=== PATIENT | female | born 1980 | race Caucasian/White ===

== ENCOUNTER 2018-05-16 01:48 | Emergency (ER) | payer MEDICAID ==
[~2018-05-16] VITALS: Ht 170.2 cm; Wt 76.2 kg
[2018-05-16 01:56] VITALS: Ht 170.2 cm; Wt 76.2 kg
[2018-05-16 02:48] LABS: CALCIUM 8.7 mg/dL (8.5-10.1); CARBON DIOXIDE 24.5 mmol/L (21-32); CHLORIDE SERUM 103 mmol/L (98-107); CREATININE SERUM 0.9 mg/dL (0.6-1.0); GFR1 > 60 mL/min; GLUCOSE SERUM 123 mg/dL (74-106); SODIUM SERUM 138 mmol/L (136-145)
[2018-05-16 02:53] LABS: ALBUMIN 3.5 g/dL (3.4-5.0); ALKALINE PHOSPHATASE 115 U/L (46-116); ALT/SGPT 61 U/L (14-59); AST/SGOT 82 U/L (15-37); LIPASE 709 IU/L (73-393); TOTAL PROTEIN, SERUM 7.5 g/dL (6.4-8.2)
[2018-05-16 03:31] VITALS: BP 118/73
== END 2018-05-16 03:31 | disposition home or self-care (01) ==
LOC: ED 01:48
PROVIDERS: Emergency Medicine
DX: R10.13 Epigastric pain (principal); R11.0 Nausea; Z90.49 Acquired absence of other specified parts of digestive tract
CPT/HCPCS: J0500

== ENCOUNTER 2018-06-09 01:06 | Inpatient (IN) | payer MEDICAID ==
[~2018-06-09] VITALS: Ht 170.2 cm; Wt 77.1 kg
[2018-06-09 01:26] VITALS: Ht 170.2 cm; Wt 77.1 kg
[2018-06-09 02:08] LABS: microscopic required? YES; urine erythrocyte TRACE (NEGATIVE)
[2018-06-09 02:10] LABS: BASOPHIL % 0.8 % (0-2); PLATELET COUNT 256 x10^3mcL (130-400); RED CELL DISTRIBUTION WIDTH 14.5 % (11.5-14.5)
[2018-06-09 02:18] LABS: CALCIUM 8.4 mg/dL (8.5-10.1); CARBON DIOXIDE 28.7 mmol/L (21-32); CHLORIDE SERUM 104 mmol/L (98-107); CREATININE SERUM 0.9 mg/dL (0.6-1.0); GFR1 > 60 mL/min; GLUCOSE SERUM 116 mg/dL (74-106); POTASSIUM SERUM 3.9 mmol/L (3.5-5.1); SODIUM SERUM 139 mmol/L (136-145)
[2018-06-09 02:22] LABS: ALBUMIN 3.6 g/dL (3.4-5.0); ALKALINE PHOSPHATASE 111 U/L (46-116); ALT/SGPT 34 U/L (14-59); AMYLASE 55 U/L (25-115); AST/SGOT 24 U/L (15-37); BILIRUBIN TOTAL 0.32 mg/dL (0.20-1.00); LIPASE 148 IU/L (73-393); TOTAL PROTEIN, SERUM 7.4 g/dL (6.4-8.2)
[2018-06-09] MEDS ORDERED: OXYCODONE HYDRO10 M1 PO (05:05)
[2018-06-09 06:09] LABS: CHOLESTEROL/HDL RATIO 3.6; PHOSPHOROUS 3.5 mg/dL (2.5-4.9)
[2018-06-09 06:16] LABS: FREE T4 1.11 ng/dL (0.76-1.46); T4(THYROXINE) 8.4 ug/dL (4.7-13.3)
[2018-06-09 06:17] LABS: T3 TOTAL 1.14 ng/mL
[2018-06-09 06:26] VITALS: BP 102/89
[2018-06-09 09:34] VITALS: BP 106/73
[2018-06-09 17:09] VITALS: BP 106/69
[2018-06-09 20:39] VITALS: BP 118/74
[2018-06-10 05:35] VITALS: BP 114/77
[2018-06-10 11:18] VITALS: BP 121/74
[2018-06-10 13:10] VITALS: BP 102/63
[2018-06-10] MEDS ORDERED: ELA25 PO (15:26)
[2018-06-10] MEDS ORDERED: AMITIZA24 MC1 PO (15:27)
[2018-06-10] MEDS ORDERED: METP PO (15:28)
[2018-06-10 15:44] VITALS: BP 102/63
== END 2018-06-10 16:25 | disposition home or self-care (01) | DRG 241 ==
LOC: ED 01:06 → DU 05:33 → IC 11:40 → DU 13:40 → IC 06-10 07:51 → DU 06-10 10:46
PROVIDERS: Emergency Medicine; Family Medicine; Internal Medicine Gastroenterology
PROC: 0DB68ZX Excision of Stomach, Via Natural or Artificial Opening Endoscopic, Diagnostic (ICD-10-PCS; principal; 2018-06-09 10:15)
PROC: 0DJD8ZZ Inspection of Lower Intestinal Tract, Via Natural or Artificial Opening Endoscopic (ICD-10-PCS; 2018-06-10)
DX: K29.70 Gastritis, unspecified, without bleeding (principal); K31.84 Gastroparesis; K27.9 Peptic ulcer, site unspecified, unspecified as acute or chronic, without hemorrhage or perforation; K58.8 Other irritable bowel syndrome; T40.2X5A Adverse effect of other opioids, initial encounter; Z68.26 Body mass index [BMI] 26.0-26.9, adult; Z79.891 Long term (current) use of opiate analgesic; Y92.009 Unspecified place in unspecified non-institutional (private) residence as the place of occurrence of the external cause
CPT/HCPCS: 43235; 45378; 83880; 84439; J1170; J1200; J1610; J2250; J2270; J2310; J2765; J3010; J3490; J7030; Q0092; Q0162

== ENCOUNTER 2018-11-08 21:05 | Emergency (ER) | payer MEDICAID ==
[~2018-11-08] VITALS: Ht 167.6 cm; Wt 77.6 kg
[~2018-11-08 21:05] MED LIST: AMITIZA24 MC1 PO; ELA25 PO; METP PO; OXYCODONE HYDRO10 M1 PO
[2018-11-08 21:20] VITALS: Ht 167.6 cm; Wt 77.6 kg
[2018-11-08 22:32] LABS: CALCIUM 8.9 mg/dL (8.5-10.1); CARBON DIOXIDE 29.1 mmol/L (21-32); CHLORIDE SERUM 105 mmol/L (98-107); CREATININE SERUM 0.9 mg/dL (0.6-1.0); GFR1 > 60 mL/min; GLUCOSE SERUM 93 mg/dL (74-106); POTASSIUM SERUM 3.3 mmol/L (3.5-5.1); SODIUM SERUM 140 mmol/L (136-145)
[2018-11-08 22:54] VITALS: BP 121/78
== END 2018-11-08 22:54 | disposition home or self-care (01) ==
LOC: ED 21:05
PROVIDERS: Emergency Medicine
DX: K52.9 Noninfective gastroenteritis and colitis, unspecified (principal); Z90.49 Acquired absence of other specified parts of digestive tract
CPT/HCPCS: J1885; J2405; J7030

== ENCOUNTER 2018-11-11 11:21 | Emergency (ER) | payer MEDICAID ==
[~2018-11-11] VITALS: Ht 170.2 cm; Wt 77.6 kg
[2018-11-11 11:42] VITALS: Ht 170.2 cm; Wt 77.6 kg
[2018-11-11 12:16] LABS: microscopic required? NO
[2018-11-11 12:24] LABS: UA SPECIFIC GRAVITY <=1.005 (1.005-1.035); urine erythrocyte NEGATIVE (NEGATIVE)
[2018-11-11 13:34] LABS: BASOPHIL % 0.7 % (0-2); PLATELET COUNT 276 x10^3mcL (130-400)
[2018-11-11 13:42] LABS: CALCIUM 8.4 mg/dL (8.5-10.1); CARBON DIOXIDE 29.1 mmol/L (21-32); CHLORIDE SERUM 105 mmol/L (98-107); CREATININE SERUM 0.8 mg/dL (0.6-1.0); GFR1 > 60 mL/min; GLUCOSE SERUM 106 mg/dL (74-106); POTASSIUM SERUM 3.9 mmol/L (3.5-5.1); SODIUM SERUM 140 mmol/L (136-145)
[2018-11-11 13:46] LABS: ALBUMIN 3.7 g/dL (3.4-5.0); ALKALINE PHOSPHATASE 107 U/L (46-116); ALT/SGPT 28 U/L (14-59); AST/SGOT 10 U/L (15-37); BILIRUBIN TOTAL 0.29 mg/dL (0.20-1.00); LIPASE 171 IU/L (73-393); TOTAL PROTEIN, SERUM 7.9 g/dL (6.4-8.2)
[2018-11-11 13:50] LABS: RED CELL DISTRIBUTION WIDTH 15.7 % (11.5-14.5)
[2018-11-11 16:43] VITALS: BP 122/69
== END 2018-11-11 16:45 | disposition home or self-care (01) ==
LOC: ED 11:21
PROVIDERS: Emergency Medicine
DX: R10.13 Epigastric pain (principal); R11.2 Nausea with vomiting, unspecified; R51 Headache
CPT/HCPCS: J2270; J2405; J7030